=== PATIENT | male | born 1960 | race Caucasian/White ===

== ENCOUNTER → 2017-05-27 | Outpatient (CLI) | payer BC | LOC: SUN.DIA 11:31 | DX: Z01.89 Encounter for other specified special examinations (principal) ==

== ENCOUNTER → 2017-07-06 | Outpatient (CLI) | payer OTHER | LOC: SUN.DIA 08:48 | DX: E11.40 Type 2 diabetes mellitus with diabetic neuropathy, unspecified (principal); I10 Essential (primary) hypertension; E66.9 Obesity, unspecified; Z68.41 Body mass index [BMI] 40.0-44.9, adult; Z71.3 Dietary counseling and surveillance; Z72.0 Tobacco use | CPT/HCPCS: G0108 ==

== ENCOUNTER → 2017-07-21 | Outpatient (CLI) | payer OTHER | LOC: SUN.DIA 08:31 | DX: E11.40 Type 2 diabetes mellitus with diabetic neuropathy, unspecified (principal); I10 Essential (primary) hypertension; E66.9 Obesity, unspecified; Z68.41 Body mass index [BMI] 40.0-44.9, adult; Z71.3 Dietary counseling and surveillance | CPT/HCPCS: G0108 ==

== ENCOUNTER 2024-03-14 16:25 | Emergency (ER) | payer OTHER ==
[~2024-03-14] VITALS: Ht 177.8 cm; Wt 129.5 kg
[2024-03-14 16:40] VITALS: TEMP 98.7
[2024-03-14] MEDS ORDERED: LR 1,000 ML IV ONE (17:15)
[2024-03-14 17:19] LABS: BASO % 0.3 % (0.0-2.0); EOS # 0.1 K/mm3 (0.0-0.7); EOS % 0.4 % (0.0-4.0); GRAN # 8.1 K/mm3 (1.4-6.5); GRAN % 68.1 % (42.2-75.2); HEMOGLOBIN 16.8 g/dl (13.5-18.0); LYMPH # 2.7 K/mm3 (1.2-3.4); LYMPH % 22.6 % (20.0-51.0); MEAN CELL VOLUME 90 fl (80.0-100.0); MEAN CORPUSCULAR HEMOGLOBIN 31 pg (27-31); MEAN CORPUSCULAR HGB CONC 34 g/dl (33.0-37.0); MEAN PLATELET VOLUME 10.7 fl (7.4-10.4); PLATELET COUNT 209 K/mm3 (130-400); RED BLOOD COUNT 5.47 M/mm3 (4.20-5.60); REDCELL DISTRIBUTION WIDTH-CV 13.8 % (11.5-14.5)
[2024-03-14 17:34] LABS: ALBUMIN 4.2 g/dL (3.4-4.8); BILIRUBIN,TOTAL 0.7 mg/dL (0.2-1.2); CALCIUM 10.1 mg/dL (8.4-10.2); CREATININE, serum 1.44 mg/dL (0.72-1.25); TOTAL PROTEIN 7.6 g/dl (6.2-8.1)
[2024-03-14 17:52] LABS: COLLECTION METHOD CLEAN CATCH; PH 5.5 (5.0-8.5); URINE APPEARANCE SL. CLOUDY (CLEAR/HAZY); URINE COLOR DARK YELLOW (YELLOW)
[2024-03-14 17:53] LABS: URINE BLOOD 3+ (NEGATIVE); URINE GLUCOSE 3+ (NEGATIVE); URINE KETONE Negative (NEGATIVE); URINE NITRATE Negative (NEGATIVE); URINE PROTEIN(semi-quant) 2+ (NEGATIVE); URINE UROBILINOGEN 0.2 E.U/dL (0.2-1.0)
[2024-03-14 17:54] LABS: URINE BACTERIA MODERATE /hpf (NONE SEEN); URINE RBC >50 /hpf (0-2)
[2024-03-14] MEDS ORDERED: Iohexol 300 - 100 ML VIAL IV ONE (18:00)
[2024-03-14] MEDS ORDERED: NS 50 ML IV SCH (18:02)
[2024-03-14 19:11] VITALS: BP 123/82; PULSE 93
== END 2024-03-14 19:11 | disposition home or self-care (01) ==
LOC: COL.ER 16:25
PROVIDERS: Family Medicine
DX: N28.1 Cyst of kidney, acquired (principal); F17.210 Nicotine dependence, cigarettes, uncomplicated
CPT/HCPCS: J7120; Q9967